=== PATIENT | female | born 1990 | race Two or more races ===

== ENCOUNTER 2023-12-16 15:05 | Emergency (ER) | payer SELFPAY ==
[~2023-12-16] VITALS: Ht 167.6 cm; Wt 65.7 kg
[2023-12-16 16:40] VITALS: BP 117/85; PULSE 72; RESP 17; TEMP 98; O2SAT 97
[2023-12-16] MEDS: KETOROLAC TROMETH 60MG/2ML VIAL IM ONE (16:47)
== END 2023-12-16 17:08 | disposition home or self-care (01) ==
LOC: ER 15:05
DX: S90.31XA Contusion of right foot, initial encounter (principal); W04.XXXA Fall while being carried or supported by other persons, initial encounter; Y93.89 Activity, other specified; Y92.89 Other specified places as the place of occurrence of the external cause; Y99.8 Other external cause status
CPT/HCPCS: 73630; 96372; 99283; J1885